=== PATIENT | female | born 1965 | race Caucasian/White ===

== ENCOUNTER → 2016-10-16 | Day surgery (SDC) | payer OTHER ==
[~2016-10-16] MED LIST: BUPIVACAINE/EPINEPHRINE 0.5% 50 ML VIAL ONE; KETOROLAC TROMETHAMINE 30 MG/ML (IVP) VIAL IV PUSH ONE; LACTATED RINGER'S 1000 ML INJ 1,000 ML ONE; ONDANSETRON HCL 4 MG/2 ML VIAL IV PUSH ONE; PROPOFOL 200 MG/20 ML AMP IV ONE; ceFAZolin INJ 1,000 MG VIAL ONE
--- NOTE | 2016-10-16 16:42 | MP ---
cc: MOISÉS BURGESS DATE OF SURGERY: 10/16/2016 PREOPERATIVE DIAGNOSIS: Left knee lateral meniscus tear. POSTOPERATIVE DIAGNOSES Left knee lateral meniscus tear. PROCEDURE Left knee arthroscopic partial lateral meniscectomy. SURGEON Dr. Moisés Burgess ANESTHESIA General. REVIEW OF SYSTEMS Less than 10 cc. TOURNIQUET TIME: Zero. COMPLICATIONS: None. JUSTIFICATION: This patient is a 51-year-old female who injured her left knee, She has had persistent symptoms of pain. She continues to fail with conservative treatments. Clinical exam as well as MRI confirmed the above-named findings. The patient was counseled as to the risks, benefits and alternatives of the above named surgical procedure. She did wish to surgery. A written consent was obtained. The patient identified by name, taken to the supine on the general anesthesia was administered. The patient as well as 2 grams of IV Ancef. The left thigh carefully placed in well-padded leg simmons. The left lower extremity prepped and draped using as alcohol, Hibiclens solution and Chloraprep solution. A standard medial and lateral parapatellar arthroscope portal was established. 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 The lateral compartment revealed a radial tear of the bilateral meniscus extending into the anterior posterior horns also evidence of grade 2 focal chondromalacia in line lateral femoral condyle with the meniscus tear. An arthroscopic biter followed by arthroscopic shaver is introduced into the lateral compartment to perform partial lateral meniscectomy. The meniscal rim was probed and noted be stable after meniscectomy. 30cc of 0.50% Marcaine with epinephrine was injected into the knee joint. The arthroscope portals closed 3-0 Prolene suture. Sterile dressing applied. The patient tolerated the procedure well. No intraoperative complications were noted. MD ERENDIRA Gutierrez/pebbles /2:39 PM /4:30 PM
== END | disposition home or self-care (01) ==
LOC: ESDC 12:08
PROVIDERS: ATTEND Orthopaedic Surgery Sports Medicine
DX: S83.282A Other tear of lateral meniscus, current injury, left knee, initial encounter (principal)
CPT/HCPCS: 01400; 29881; J0690; J1885; J2405; J3010; J7120